=== PATIENT | male | born 2000 | race Caucasian/White ===

== ENCOUNTER 2018-12-13 02:58 | Emergency (ER) | payer OTHER ==
[~2018-12-13] VITALS: Ht 188 cm; Wt 95.3 kg
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
--- NOTE | 2018-12-13 04:00 | NUR ---
Patient discharged to home in stable conditon. Written and verbal after care instructions given. Patient verbalizes understanding of instructions. Patient ambulated with stable gait.
[2018-12-13 04:11] VITALS: BP 132/71
== END 2018-12-13 04:00 | disposition home or self-care (01) ==
LOC: ER 03:09
DX: S20.212A Contusion of left front wall of thorax, initial encounter (principal); V43.52XA Car driver injured in collision with other type car in traffic accident, initial encounter; Y93.89 Activity, other specified; Y92.410 Unspecified street and highway as the place of occurrence of the external cause; Y99.8 Other external cause status
CPT/HCPCS: 71101; A4663